=== PATIENT | female | born 1975 | race Caucasian/White ===

== ENCOUNTER 2021-03-28 16:35 | Observation (INO) | payer SELFPAY ==
[2021-03-28] MEDS ORDERED: Ondansetron PF 4 MG/2 ML Vial ONE ×2 (17:17→17:36)
[2021-03-28] MEDS ORDERED: Morphine 4 MG/ML VIAL ONE ×2 (17:17→17:36)
[2021-03-28 17:27] LABS: Hemoglobin 11.2 g/dL (12.0-16.0); Mean Corpuscular HGB CONC 33.4 g/dL (32.0-36.0); Mean Platelet Volume 6.2 fL (7.4-10.4); Platelet Count 300 thou/uL (130-400); RBC Distribution Width 11.9 % (11.5-14.5); Red Blood Cell (RBC) Count 3.12 mill/uL (4.20-5.40); White Blood Cell (WBC) Count 6.2 thou/uL (4.8-10.8)
[2021-03-28 17:44] LABS: ALT (SGPT) 21 U/L (8-55); AST (SGOT) 25 U/L (5-34); Albumin 3.8 g/dL (3.5-5.0); Alkaline Phosphatase 75 U/L (40-110); Anion Gap 12 mmol/L (10-20); BUN (Urea Nitrogen) 9 mg/dL (7.0-18.7); Bilirubin, Total 0.3 mg/dL (0.2-1.2); Calc. Creatinine Clearance 0 mL/min (70-130); Calcium 9.3 mg/dL (7.8-10.44); Carbon Dioxide 24 mmol/L (22-29); Chloride 107 mmol/L (98-107); Globulin 2.8 g/dL (2.4-3.5); Glucose 136 mg/dL (70-105); Lipase 21 U/L (8-78); Protein, Total 6.6 g/dL (6.0-8.3); Sodium 140 mmol/L (136-145)
[2021-03-28 18:05] LABS: #Lymphocytes 2.5 thou/uL (1.20-3.40); #Monocytes 0.4 thou/uL (0.11-0.59); #Neutrophils 3.3 thou/uL (1.40-6.50); %Basophils 0.7 % (0.0-1.0); %Eosinophils 0.7 % (0.0-10.0); %Lymphocytes 39.4 % (21.0-51.0); %Monocytes 5.8 % (0.0-10.0); %Neutrophils 53.4 % (42.0-75.0)
[2021-03-28 18:13] LABS: Bilirubin Negative (Negative); Blood, Urine Trace (Negative); Glucose, Urine (Dipstick) Negative (Negative); Ketone, Urine Negative (Negative); Leukocyte Trace (Negative); Nitrite Positive (Negative); Protein, Urine (Dipstick) 30 mg/dL (Neg-Trace); Specific Gravity, Urine 1.025 (1.005-1.030); Urobilinogen 0.2 mg/dL (Less than 2); pH, Urine 6.5 (5.0-9.0)
[2021-03-28 18:18] LABS: Clarity Cloudy (Clear)
[2021-03-28 18:19] LABS: Bacteria/HPF 3+ HPF (None Seen); RBC/HPF 0-3 HPF (0-3)
[2021-03-28 18:23] LABS: MDiff Complete? YES; Macrocytosis SLIGHT = 6-15 cells (100X) (0-5/hpf); Platelet Morphology Comment Appears Adequate; Polychromasia SLIGHT = 2-3 cells (100X) (0-2/hpf)
[2021-03-28] MEDS ORDERED: Piperacillin/Tazobactam 4.5 GM VIAL ONE (18:50)
[2021-03-28] MEDS ORDERED: Acetaminophen 325 MG TAB PO PRN (19:47)
[2021-03-28] MEDS ORDERED: Acetaminophen 650 MG Suppository PR PRN (19:47)
[2021-03-28] MEDS ORDERED: Ondansetron ODT 4 MG TAB PO PRN (19:47)
[2021-03-28] MEDS ORDERED: Ondansetron PF 4 MG/2 ML Vial IVP PRN (19:47)
[2021-03-28] MEDS ORDERED: hydrALAZINE 20 MG/ML VIAL SLOW IVP PRN (19:53)
[2021-03-28] MEDS ORDERED: Potassium Chloride 20 MEQ in Premix Bag 1 BAG IVPB SCH (20:00)
[2021-03-28] MEDS ORDERED: Potassium Chloride 20 MEQ TAB PO SCH (20:00)
[2021-03-28] MEDS ORDERED: Electrolyte Replacement Protocol 1 EACH FS SCH (20:00)
[2021-03-28] MEDS ORDERED: Electrolyte Replacement Protocol FS PRN (20:15)
[2021-03-28] MEDS: Morphine 4 MG/ML VIAL SLOW IVP PRN (21:03)
[2021-03-28] MEDS: Sodium Chloride 0.9% 1,000 ML IV SCH (21:06)
[2021-03-28 21:27] VITALS: BMI 24.8
[2021-03-28] MEDS ORDERED: Zolpidem Tartrate 5 MG TAB PO SCH (22:45)
[2021-03-28] MEDS ORDERED: Morphine 4 MG/ML VIAL SLOW IVP SCH (23:00)
[2021-03-29] MEDS: Morphine 4 MG/ML VIAL SLOW IVP PRN ×4 (01:00→12:13)
[2021-03-29] MEDS ORDERED: Morphine 4 MG/ML VIAL SLOW IVP SCH ×2 (02:00→07:00)
[2021-03-29] MEDS: Sodium Chloride 0.9% 1,000 ML IV SCH ×2 (06:11→16:33)
[2021-03-29 11:45] LABS: #Eosinphils 0.1 thou/uL (0.0-0.7); #Lymphocytes 1.9 thou/uL (1.20-3.40); #Monocytes 0.3 thou/uL (0.11-0.59); #Neutrophils 2.8 thou/uL (1.40-6.50); %Basophils 0.3 % (0.0-1.0); %Eosinophils 1.4 % (0.0-10.0); %Lymphocytes 37.3 % (21.0-51.0); %Monocytes 5.7 % (0.0-10.0); %Neutrophils 55.3 % (42.0-75.0); Mean Corpuscular HGB CONC 33.7 g/dL (32.0-36.0); Mean Corpuscular Hemoglobin 36.8 pg (27.0-31.0); Mean Platelet Volume 6.6 fL (7.4-10.4); Platelet Count 272 thou/uL (130-400)
[2021-03-29 12:07] LABS: Anion Gap 9 mmol/L (10-20); BUN (Urea Nitrogen) 4 mg/dL (7.0-18.7); Calc. Creatinine Clearance 130 mL/min (70-130); Calcium 8.6 mg/dL (7.8-10.44); Carbon Dioxide 25 mmol/L (22-29); Chloride 110 mmol/L (98-107); Glucose 95 mg/dL (70-105); Magnesium 1.7 mg/dL (1.6-2.6); Potassium 3.3 mmol/L (3.5-5.1); Sodium 141 mmol/L (136-145)
[2021-03-29] MEDS ORDERED: Lorazepam 0.5 MG TAB PO SCH (12:30)
[2021-03-29] MEDS ORDERED: Magnesium 2 GM/50 ML 2 GM in Premix Bag 1 BAG IVPB SCH (14:00)
[2021-03-29] MEDS ORDERED: Potassium Chloride 20 MEQ TAB PO SCH (14:00)
[2021-03-29] MEDS ORDERED: Morphine 4 MG/ML VIAL SLOW IVP PRN (16:08)
[2021-03-29 17:14] LABS: SARS-CoV-2 PCR by NAA Not Detected (NotDetected)
[2021-03-29] MEDS ORDERED: Fentanyl 100 MCG/2 ML VIAL ONE ×3 (17:53→20:35)
[2021-03-29] MEDS ORDERED: EPINEPHrine 1 MG/ML AMP ONE (18:01)
[2021-03-29] MEDS ORDERED: Iothalamate Meglumine 60% 50 ML VIAL FS ONE (18:01)
[2021-03-29] MEDS ORDERED: Bupivacaine 0.25% 10 ML VIAL ONE (18:01)
[2021-03-29] MEDS ORDERED: Midazolam HCl 2 mg/2 ml Vial ONE (18:10)
[2021-03-29] MEDS ORDERED: ceFAZolin 2 GM/DEX 5% 100 ML BAG ONE (18:14)
[2021-03-29] MEDS ORDERED: Dexamethasone 20 MG/5 ML VIAL ONE (18:26)
[2021-03-29] MEDS ORDERED: Phenylephrine 10 MG/ML VIAL ONE (18:26)
[2021-03-29] MEDS ORDERED: PROPOFOL 200 MG/20 ML VIAL ONE (18:26)
[2021-03-29] MEDS ORDERED: Rocuronium Bromide 10 MG/ML (10ML VIAL) ONE (18:26)
[2021-03-29] MEDS ORDERED: Ondansetron PF 4 MG/2 ML Vial ONE (18:26)
[2021-03-29] MEDS ORDERED: Lidocaine 1% PF 5 ML VIAL ONE (18:26)
[2021-03-29] MEDS ORDERED: Glycopyrrolate 0.2 MG/ML 5 ML SYRINGE ONE (18:26)
[2021-03-29] MEDS ORDERED: Dexmedetomidine 200 MCG/2 ML VIAL ONE (18:41)
[2021-03-29] MEDS ORDERED: SUGAMMADEX SODIUM 200 MG/2 ML VIAL ONE (19:43)
[2021-03-29] MEDS ORDERED: Zolpidem Tartrate 5 MG TAB PO SCH (21:00)
[2021-03-29] MEDS: Acetaminophen/Codeine 30-300mg Tablet PO SCH (21:07)
[2021-03-30] MEDS: Acetaminophen/Codeine 30-300mg Tablet PO SCH ×3 (02:14→15:12)
[2021-03-30] MEDS: Morphine 4 MG/ML VIAL SLOW IVP PRN ×2 (03:12→09:56)
[2021-03-30] MEDS: Sodium Chloride 0.9% 1,000 ML IV SCH ×2 (03:14→12:02)
[2021-03-30] MEDS ORDERED: Morphine 4 MG/ML VIAL SLOW IVP SCH (06:00)
[2021-03-30 06:31] LABS: Band 1 % (5-11); Hemoglobin 11.2 g/dL (12.0-16.0); Hypochromia SLIGHT = 6-15 cells (100X) (0-5/hpf); Lymphocytes 22 % (21-51); MDiff Complete? YES; Macrocytosis SLIGHT = 6-15 cells (100X) (0-5/hpf); Mean Corpuscular HGB CONC 34.1 g/dL (32.0-36.0); Mean Corpuscular Hemoglobin 36.9 pg (27.0-31.0); Mean Platelet Volume 7.1 fL (7.4-10.4); Monocytes 2 % (0-10); Neutrophil 75 % (42-75); Platelet Count 262 thou/uL (130-400); Platelet Morphology Comment Appears Adequate; RBC Distribution Width 11.7 % (11.5-14.5); Red Blood Cell (RBC) Count 3.03 mill/uL (4.20-5.40); Stomatocytes MODERATE= 6-15 cells (100X) (0-1/hpf); White Blood Cell (WBC) Count 6.4 thou/uL (4.8-10.8)
[2021-03-30 08:30] LABS: ALT (SGPT) 36 U/L (8-55); AST (SGOT) 52 U/L (5-34); Albumin 3.5 g/dL (3.5-5.0); Alkaline Phosphatase 67 U/L (40-110); Anion Gap 12 mmol/L (10-20); BUN (Urea Nitrogen) 5 mg/dL (7.0-18.7); Bilirubin, Direct 0.1 mg/dL (0.1-0.3); Bilirubin, Total 0.3 mg/dL (0.2-1.2); Calc. Creatinine Clearance 130 mL/min (70-130); Carbon Dioxide 23 mmol/L (22-29); Chloride 106 mmol/L (98-107); Glucose 115 mg/dL (70-105); Lipase 8 U/L (8-78); Magnesium 1.9 mg/dL (1.6-2.6); Phosphorus 3.2 mg/dL (2.3-4.7); Potassium 3.9 mmol/L (3.5-5.1); Protein, Total 6.2 g/dL (6.0-8.3); Sodium 137 mmol/L (136-145)
[2021-03-30] MEDS ORDERED: Magnesium 2 GM/50 ML 2 GM in Premix Bag 1 BAG IVPB SCH (10:00)
[2021-03-30 11:53] VITALS: BP 170/95; TEMP 98
[2021-03-30] MEDS ORDERED: Morphine 4 MG/ML VIAL SLOW IVP PRN (12:52)
[2021-03-30] MEDS ORDERED: Venlafaxine HCl XR 75 MG CAP PO SCH (21:00)
[2021-03-30] MEDS ORDERED: Non-Formulary Item 1 EACH (Desvenlafaxine Succinate [Pristiq] 50 MG Tab.Er.24h) PO SCH (21:00)
== END 2021-03-30 16:54 | disposition home or self-care (01) ==
LOC: ERS 16:35 → MSONC 19:20
PROVIDERS: ADMIT Student in an Organized Health Care Education/Training Program; ATTEND Family Medicine
PROC: 0FT44ZZ Resection of Gallbladder, Percutaneous Endoscopic Approach (ICD-10-PCS; principal; 2021-03-29)
PROC: BF121ZZ Fluoroscopy of Gallbladder using Low Osmolar Contrast (ICD-10-PCS; 2021-03-29)
DX: K81.2 Acute cholecystitis with chronic cholecystitis (principal); K83.8 Other specified diseases of biliary tract; K66.0 Peritoneal adhesions (postprocedural) (postinfection); E87.6 Hypokalemia; D50.9 Iron deficiency anemia, unspecified; F17.210 Nicotine dependence, cigarettes, uncomplicated; Z79.899 Other long term (current) drug therapy; Z88.5 Allergy status to narcotic agent; Z20.822 Contact with and (suspected) exposure to COVID-19
CPT/HCPCS: 36415; 47532; 76705; 80048; 80053; 80076; 81003; 81015; 82607; 82746; 83690; 83735; 84100; 85007; 85025; 85027; 88304; 96365; 96375; 96376; C1713; G0378; J0171; J1100; J1610; J2250; J2270; J2370; J2405; J2543; J2704; J3010; J3475; J7050; Q9961-U8; S0020; U0003; U0005

== ENCOUNTER 2022-01-01 15:37 | Emergency (ER) | payer SELFPAY ==
[2022-01-01] MEDS ORDERED: Ibuprofen 200 MG TAB ONE (19:52)
[2022-01-01] MEDS ORDERED: Acetaminophen 500 MG TAB ONE (19:52)
== END 2022-01-01 20:53 | disposition home or self-care (01) ==
LOC: ERS 15:37
DX: S53.402A Unspecified sprain of left elbow, initial encounter (principal); I10 Essential (primary) hypertension; F17.210 Nicotine dependence, cigarettes, uncomplicated; Z79.899 Other long term (current) drug therapy; W23.0XXA Caught, crushed, jammed, or pinched between moving objects, initial encounter

== ENCOUNTER 2024-10-17 03:51 | Emergency (ER) | payer SELFPAY ==
[2024-10-17 05:12] LABS: #Basophils 0.03 10x3/uL (0.0-0.2); #Eosinophils Less than 0.03 10x3/uL (0.0-0.7); #Monocytes 0.64 10x3/uL (0.11-0.59); #Neutrophils 12.16 10x3/uL (1.40-6.50); %Basophils 0.2 % (0.0-1.0); %Eosinophils 0.0 % (0.0-10.0); %Lymphocytes 7.7 % (21.0-51.0); %Monocytes 4.6 % (0.0-10.0); %Neutrophils 87.0 % (42.0-75.0); Hematocrit 30.9 % (36.0-47.0); Hemoglobin 10.2 g/dL (12.0-16.0); Mean Corpuscular Hemoglobin 33.4 pg (27.0-31.0); Mean Corpuscular Volume 101.3 fL (78.0-98.0); Platelet Count 338 10x3/uL (130-400); Red Blood Cell (RBC) Count 3.05 mill/uL (4.20-5.40); White Blood Cell (WBC) Count 13.98 10x3/uL (4.8-10.8)
[2024-10-17] MEDS ORDERED: Ondansetron PF 4 MG/2 ML Vial ONE ×2 (05:17→08:17)
[2024-10-17] MEDS ORDERED: HYDROmorphone 0.5 MG/0.5 ML SYRINGE ONE ×2 (05:17→08:54)
[2024-10-17 05:30] LABS: ALT (SGPT) 2299 U/L (Less than 34); AST (SGOT) 2764 U/L (11-34); Albumin 3.5 g/dL (3.1-4.5); Alkaline Phosphatase 203 U/L (40-110); Anion Gap 19 mmol/L (10-20); BUN (Urea Nitrogen) 10 mg/dL (9.8-20.1); Bilirubin, Total 1.0 mg/dL (0.3-1.2); Calc. Creatinine Clearance 0 mL/min (70-130); Calcium 9.0 mg/dL (7.8-10.44); Carbon Dioxide 13 mmol/L (22-29); Chloride 109 mmol/L (98-107); Globulin 2.4 g/dL (2.4-3.5); Glucose 69 mg/dL (70-105); Lipase 9 U/L (8-78); Magnesium 1.6 mg/dL (1.6-2.6); Potassium 4.1 mmol/L (3.5-5.1); Sodium 137 mmol/L (136-145)
[2024-10-17 05:31] LABS: Acetaminophen 23 mcg/mL (Less than 10); Salicylate Less than 8.0 mg/dL (Less than 8.0)
[2024-10-17] MEDS ORDERED: ACETYLCYSTEINE IV SCH ×3 (07:30→13:00)
[2024-10-17] MEDS ORDERED: WATER IV SCH ×3 (07:30→13:00)
[2024-10-17] MEDS ORDERED: DEXTROSE 5% IV SCH ×3 (07:30→13:00)
[2024-10-17 07:40] LABS: INR-International Normal Ratio 1.8; Prothrombin Time 21.0 sec (12.0-14.7)
[2024-10-17 08:41] LABS: Cocaine Metabolite Screen Negative (Negative); THC/Cannabinoid Screen PRELIM POSITIVE (Negative); Tricyclic Screen PRELIM POSITIVE (Negative)
== END 2024-10-17 09:42 | disposition short-term general hospital (02) ==
LOC: ERS 03:51
DX: K72.00 Acute and subacute hepatic failure without coma (principal); I10 Essential (primary) hypertension; Z87.891 Personal history of nicotine dependence; Z55.6 Problems related to health literacy
CPT/HCPCS: 80053; 80143; 80306; 80307; 82247; 82248; 83690; 83735; 85025; 85610; 93005; 96374; 96375; 96376; J0132; J1171; J2405; J7070

== ENCOUNTER 2025-01-06 13:30 | Inpatient (IN) | payer SELFPAY ==
[~2025-01-06 13:30] MED LIST: Iopamidol-370 76% 500 ML MDV (1 ML CHARGE) ONE
[2025-01-06 14:28] LABS: Hematocrit 33.8 % (36.0-47.0); Hemoglobin 11.0 g/dL (12.0-16.0); Mean Corpuscular Hemoglobin 31.2 pg (27.0-31.0); Mean Corpuscular Volume 95.8 fL (78.0-98.0); Platelet Count 282 10x3/uL (130-400); Red Blood Cell (RBC) Count 3.53 mill/uL (4.20-5.40); White Blood Cell (WBC) Count 5.42 10x3/uL (4.8-10.8)
[2025-01-06] MEDS ORDERED: Ondansetron PF 4 MG/2 ML Vial ONE (14:44)
[2025-01-06 14:45] LABS: ALT (SGPT) 235 U/L (Less than 34); AST (SGOT) 214 U/L (11-34); Albumin 3.7 g/dL (3.1-4.5); Alkaline Phosphatase 132 U/L (40-110); Anion Gap 15 mmol/L (10-20); BUN (Urea Nitrogen) 12 mg/dL (9.8-20.1); Bilirubin, Total 0.3 mg/dL (0.3-1.2); Calc. Creatinine Clearance 0 mL/min (70-130); Calcium 9.3 mg/dL (7.8-10.44); Carbon Dioxide 21 mmol/L (22-29); Chloride 108 mmol/L (98-107); Globulin 2.8 g/dL (2.4-3.5); Glucose 88 mg/dL (70-105); Potassium 3.9 mmol/L (3.5-5.1); Sodium 140 mmol/L (136-145)
[2025-01-06] MEDS ORDERED: Aspirin Chewable 81 MG TAB ONE (14:45)
[2025-01-06 14:47] LABS: INR-International Normal Ratio 1.0; Prothrombin Time 13.2 sec (12.0-14.7)
[2025-01-06 14:48] LABS: PTT 45.4 sec (22.9-36.1)
[2025-01-06 14:50] LABS: D-Dimer Test Less than 0.27 mcg/mL (0.27-0.43)
[2025-01-06 14:53] LABS: Anisocytosis SLIGHT = 6-15 cells HPF (0-5); Macrocytosis SLIGHT = 6-15 cells HPF (0-5); Platelet Adequacy Comment Platelets Normal; Smudge Cells 9.0 %; Stomatocytes SLIGHT = 2-5 cells HPF (0-1)
[2025-01-06 15:35] LABS: Cocaine Metabolite Screen Negative (Negative); THC/Cannabinoid Screen PRELIM POSITIVE (Negative); Tricyclic Screen Negative (Negative)
[2025-01-06] MEDS ORDERED: Calcium Carbonate 500 MG ChewTAB PO PRN (15:51)
[2025-01-06] MEDS ORDERED: Guaifenesin DM 100-10/5 ML UDCUP PO PRN (15:51)
[2025-01-06] MEDS: ALPRAZolam 0.5 MG TAB PO PRN (18:05)
[2025-01-06] MEDS: Acetaminophen 325 MG TAB PO SCH (18:05)
[2025-01-06 18:59] VITALS: BMI 23.3
[2025-01-06] MEDS: Valsartan 80 MG TAB PO SCH (20:49)
[2025-01-06] MEDS: Mirtazapine 15 MG TAB PO SCH (20:49)
[2025-01-06] MEDS: HYDROcodone/Acetaminophen 5/325 mg Tablet PO PRN (20:56)
[2025-01-07 05:20] LABS: #Basophils 0.06 10x3/uL (0.0-0.2); #Eosinophils 0.09 10x3/uL (0.0-0.7); #Monocytes 0.40 10x3/uL (0.11-0.59); #Neutrophils 1.69 10x3/uL (1.40-6.50); %Basophils 1.4 % (0.0-1.0); %Eosinophils 2.0 % (0.0-10.0); %Lymphocytes 48.9 % (21.0-51.0); %Monocytes 9.1 % (0.0-10.0); %Neutrophils 38.4 % (42.0-75.0); Hematocrit 35.8 % (36.0-47.0); Hemoglobin 11.3 g/dL (12.0-16.0); Mean Corpuscular Hemoglobin 31.6 pg (27.0-31.0); Mean Corpuscular Volume 100.0 fL (78.0-98.0); Platelet Count 269 10x3/uL (130-400); Red Blood Cell (RBC) Count 3.58 mill/uL (4.20-5.40); White Blood Cell (WBC) Count 4.40 10x3/uL (4.8-10.8)
[2025-01-07 05:41] LABS: Anion Gap 7 mmol/L (10-20); BUN (Urea Nitrogen) 12 mg/dL (9.8-20.1); Calc. Creatinine Clearance 93 mL/min (70-130); Calcium 9.4 mg/dL (7.8-10.44); Carbon Dioxide 23 mmol/L (22-29); Cardiac Risk 2.4 (Less than 4.5); Chloride 111 mmol/L (98-107); Cholesterol 194 mg/dl (< 200 Desired); Glucose 74 mg/dL (70-105); HDL Cholesterol 81 mg/dL (>60 Neg Risk); LDL Cholesterol, Calculated 100 mg/dL; Potassium 3.6 mmol/L (3.5-5.1); Sodium 137 mmol/L (136-145); Triglycerides 63 mg/dL (Less than 150)
[2025-01-07] MEDS ORDERED: Enoxaparin 40 MG (0.4 mL) SYRINGE SC SCH (09:00)
[2025-01-07] MEDS: DULoxetine 30 MG CAP PO SCH (10:07)
[2025-01-07] MEDS: Aspirin 81 mg Enteric Coated Tablet PO SCH (10:07)
[2025-01-07] MEDS: Pantoprazole 40 MG DR.TAB PO SCH (10:07)
[2025-01-07] MEDS: Enoxaparin 40 MG (0.4 mL) SYRINGE SC SCH (10:10)
[2025-01-07] MEDS: oxyCODONE 5 MG TAB PO PRN (22:35)
[2025-01-08] MEDS: HYDROmorphone 2 MG TAB PO SCH (14:37)
[2025-01-08 18:20] LABS: #Basophils 0.03 10x3/uL (0.0-0.2); #Eosinophils 0.04 10x3/uL (0.0-0.7); #Monocytes 0.30 10x3/uL (0.11-0.59); #Neutrophils 2.12 10x3/uL (1.40-6.50); %Basophils 0.7 % (0.0-1.0); %Eosinophils 1.0 % (0.0-10.0); %Lymphocytes 40.3 % (21.0-51.0); %Monocytes 7.2 % (0.0-10.0); %Neutrophils 50.6 % (42.0-75.0); Hematocrit 36.3 % (36.0-47.0); Hemoglobin 11.9 g/dL (12.0-16.0); Mean Corpuscular Hemoglobin 32.0 pg (27.0-31.0); Mean Corpuscular Volume 97.6 fL (78.0-98.0); Platelet Count 251 10x3/uL (130-400); Red Blood Cell (RBC) Count 3.72 mill/uL (4.20-5.40); White Blood Cell (WBC) Count 4.19 10x3/uL (4.8-10.8)
[2025-01-08 18:47] LABS: ALT (SGPT) 366 U/L (Less than 34); AST (SGOT) 429 U/L (11-34); Albumin 3.7 g/dL (3.1-4.5); Alkaline Phosphatase 242 U/L (40-110); Anion Gap 11 mmol/L (10-20); BUN (Urea Nitrogen) 10 mg/dL (9.8-20.1); Bilirubin, Total 0.3 mg/dL (0.3-1.2); Calc. Creatinine Clearance 113 mL/min (70-130); Calcium 9.2 mg/dL (7.8-10.44); Carbon Dioxide 19 mmol/L (22-29); Chloride 110 mmol/L (98-107); Globulin 3.0 g/dL (2.4-3.5); Glucose 94 mg/dL (70-105); Potassium 3.7 mmol/L (3.5-5.1); Sodium 136 mmol/L (136-145)
[2025-01-08] MEDS: Ondansetron PF 4 MG/2 ML Vial IVP PRN (20:23)
[2025-01-09 02:54] LABS: Bacteria/HPF 2+ HPF (None Seen); CAUTI Indications for Culture Dysuria,urgency,freq; Glucose, Urine (Dipstick) Normal (Negative); Leukocyte 500 Leu/uL (Negative); Protein, Urine (Dipstick) 100 mg/dL (Neg-Trace); RBC/HPF 21-50 HPF (0-3); Specific Gravity, Urine 1.018 (1.002-1.036); WBC/HPF Greater than 50 HPF (0-3)
[2025-01-09 02:55] LABS: Urine Culture Reflex Yes Yes
[2025-01-09 05:08] LABS: Hematocrit 34.9 % (36.0-47.0); Hemoglobin 11.0 g/dL (12.0-16.0); Mean Corpuscular Hemoglobin 31.3 pg (27.0-31.0); Mean Corpuscular Volume 99.4 fL (78.0-98.0); Platelet Count 273 10x3/uL (130-400); Red Blood Cell (RBC) Count 3.51 mill/uL (4.20-5.40); White Blood Cell (WBC) Count 9.05 10x3/uL (4.8-10.8)
[2025-01-09 05:45] LABS: ALT (SGPT) 280 U/L (Less than 34); AST (SGOT) 259 U/L (11-34); Albumin 3.5 g/dL (3.1-4.5); Alkaline Phosphatase 213 U/L (40-110); Anion Gap 14 mmol/L (10-20); BUN (Urea Nitrogen) 14 mg/dL (9.8-20.1); Bilirubin, Total 0.2 mg/dL (0.3-1.2); CK (CPK) 83 U/L (29-168); Calc. Creatinine Clearance 90 mL/min (70-130); Calcium 9.0 mg/dL (7.8-10.44); Carbon Dioxide 21 mmol/L (22-29); Chloride 110 mmol/L (98-107); Globulin 3.0 g/dL (2.4-3.5); Glucose 88 mg/dL (70-105); Potassium 3.9 mmol/L (3.5-5.1); Sodium 141 mmol/L (136-145)
[2025-01-09 13:54] VITALS: TEMP 97.9
[2025-01-09 17:13] VITALS: BP 119/71
== END 2025-01-09 17:16 | disposition home or self-care (01) | DRG 93 ==
LOC: ERS 13:30 → OBS 15:28 → OBSVTOIN 01-07 20:19
PROVIDERS: ADMIT Internal Medicine; ATTEND Internal Medicine
DX: R47.81 Slurred speech (principal); R07.9 Chest pain, unspecified; I10 Essential (primary) hypertension; F41.9 Anxiety disorder, unspecified; F32.A Depression, unspecified; R47.1 Dysarthria and anarthria; R29.700 NIHSS score 0; R74.01 Elevation of levels of liver transaminase levels; Z98.890 Other specified postprocedural states; Z90.710 Acquired absence of both cervix and uterus; Z90.49 Acquired absence of other specified parts of digestive tract; Z88.8 Allergy status to other drugs, medicaments and biological substances; Z88.6 Allergy status to analgesic agent
CPT/HCPCS: 36415; 36416; 70450; 70496; 70498; 70551; 71275; 78452; 80048; 80053; 80061; 80306; 81001; 82550; 84484; 85025; 85027; 85379; 85610; 85730; 87077; 87086; 87186; 93005; 93010; 93017; 96372; 96374; 96375; 96376; A9502; G0378; J0690; J1650; J2060; J2270; J2405; J2785; J7030; Q9967; S0179